=== PATIENT | female | born 1970 | race Two or more races ===

== ENCOUNTER 2019-08-25 05:55 | Day surgery (SDC) | payer OTHER ==
[2019-08-25] MEDS ORDERED: COLACE100 MG PO (08:23)
[2019-08-25] MEDS ORDERED: NEURONTIN300 MG PO (08:23)
[2019-08-25] MEDS ORDERED: PERCOCET 5-3251 EACH PO (08:23)
== END 2019-08-25 11:30 | disposition home or self-care (01) ==
LOC: CIR.AMB 05:55
DX: K64.8 Other hemorrhoids (principal)